=== PATIENT | male | born 2000 | race African-American/Black ===

== ENCOUNTER 2022-12-21 20:42 | Emergency (ER) | payer OTHER ==
[~2022-12-21] VITALS: Ht 175.3 cm; Wt 63.4 kg
[2022-12-21 21:14] LABS: VENOUS BASE EXCESS -0.5 (-2.0-2.0); VENOUS HCO3 26.7 MEQ/L (23.0-27.0); VENOUS PARTIAL PRESSURE O2 38.1 mmHg (30.0-50.0); VENOUS STANDARD HCO3 23.3 MEQ/L; VENOUS TOTAL CO2 28.3 MEQ/L (24.0-28.0)
[2022-12-21 21:21] LABS: BASO % 0.3 % (0.0-1.0); EOS % 0.6 % (0.0-3.0); HEMATOCRIT 44.7 % (42.0-52.0); HEMOGLOBIN 15.6 g/dl (13.5-17.5); LYMPH % 30.9 % (24.0-44.0); MEAN CORPUSCULAR HEMOGLOBIN 27.3 pg (27.0-33.0); MEAN CORPUSCULAR HGB CONC 34.9 g/dl (32.0-36.5); MEAN CORPUSCULAR VOLUME 78.1 fl (80.0-96.0); MONO # 0.4 10^3/uL (0.0-0.8); MONO % 6.3 % (2.0-8.0); NEUTROPHILS % 61.7 % (36.0-66.0); PLATELET COUNT, AUTOMATED 289 10^3/uL (150-450); RED BLOOD COUNT 5.72 10^6/uL (4.30-6.10); WHITE BLOOD COUNT 6.5 10^3/uL (4.0-10.0)
[2022-12-21] MEDS ORDERED: NS 1,000 ML IV ONE (21:30)
[2022-12-21 21:37] LABS: HEMOGLOBIN A1c 8.9 % (4.0-6.0)
[2022-12-21 21:47] LABS: BILIRUBIN,DIRECT 0.4 MG/DL (<0.4)
[2022-12-21 21:56] LABS: LIPASE 27 U/L (12-53)
[2022-12-21 21:56] LABS: RSV AMPLIFICATION NEGATIVE (NEGATIVE)
[2022-12-21 22:15] LABS: OSMOLALITY SERUM 312 MOSM/KG (275-295)
[2022-12-21 22:18] LABS: ALBUMIN 5.1 G/DL (3.2-5.2); ALKALINE PHOSPHATASE 177 U/L (46-116); ALT/SGPT 23 U/L (7.0-40); AST/SGOT 21 U/L (<34); BILIRUBIN,TOTAL 1.1 MG/DL (0.3-1.2); BLOOD UREA NITROGEN 16 MG/DL (9-23); CALCIUM LEVEL 10.4 MG/DL (8.5-10.1); CARBON DIOXIDE LEVEL 26 MMOL/L (20-31); CHLORIDE LEVEL 90 MMOL/L (98-107); CREATININE FOR GFR 1.08 MG/DL (0.70-1.30); GLUCOSE, FASTING 722 MG/DL (60-100); POTASSIUM SERUM 4.6 MMOL/L (3.5-5.1); SODIUM LEVEL 127 MMOL/L (136-145); TOTAL PROTEIN 8.1 G/DL (5.7-8.2)
[2022-12-21] MEDS ORDERED: HumuLIN R (REGULAR) INSULIN (NovoLIN R) **100U/ML** PER UNIT IV ONE (22:25)
[2022-12-21 23:00] VITALS: BP 141/65
[2022-12-21] MEDS ORDERED: metFORMIN (GLUCOPHAGE) 500MG TAB PO ONE (23:30)
[2022-12-21] MEDS ORDERED: METF-839 PO (23:37)
[2022-12-22] MEDS ORDERED: METF-839 PO (14:53)
== END 2022-12-21 23:52 | disposition home or self-care (01) ==
LOC: M ED 20:42
DX: E11.65 Type 2 diabetes mellitus with hyperglycemia (principal)
CPT/HCPCS: 36415; 80047; 80048; 80076; 81002; 82010; 82803; 83036; 83690; 83930; 85025; 87631; 93005; 93041; 94760; 99285; J1815

== ENCOUNTER 2023-05-16 18:07 | Inpatient (IN) | payer OTHER ==
[~2023-05-16] VITALS: Ht 175.3 cm; Wt 60.7 kg
[~2023-05-16 18:07] MED LIST: METF-839 PO
[2023-05-16 19:50] LABS: BASO % 0.5 % (0.0-1.0); EOS # 0.2 10^3/uL (0.0-0.5); EOS % 2.2 % (0.0-3.0); HEMOGLOBIN 15.1 g/dl (13.5-17.5); LYMPH # 1.8 10^3/uL (1.5-5.0); LYMPH % 25.1 % (24.0-44.0); MEAN CORPUSCULAR HEMOGLOBIN 27.6 pg (27.0-33.0); MEAN CORPUSCULAR HGB CONC 35.1 g/dl (32.0-36.5); MEAN CORPUSCULAR VOLUME 78.5 fl (80.0-96.0); MONO # 0.4 10^3/uL (0.0-0.8); MONO % 5.1 % (2.0-8.0); NEUTROPHILS # 4.9 10^3/uL (1.5-8.5); PLATELET COUNT, AUTOMATED 279 10^3/uL (150-450); RED BLOOD COUNT 5.48 10^6/uL (4.30-6.10); WHITE BLOOD COUNT 7.3 10^3/uL (4.0-10.0)
[2023-05-16 19:56] LABS: VENOUS BASE EXCESS -1.8 (-2.0-2.0); VENOUS O2 SATURATION 60.7 % (60.0-80.0); VENOUS PARTIAL PRESSURE CO2 49.8 mmHg (38.0-50.0); VENOUS PARTIAL PRESSURE O2 32.4 mmHg (30.0-50.0); VENOUS PH 7.319 UNITS (7.330-7.430); VENOUS TOTAL CO2 26.6 MMOL/L (24.0-28.0)
[2023-05-16 20:13] LABS: LIPASE 30 U/L (12-53)
[2023-05-16 20:18] LABS: ALKALINE PHOSPHATASE 152 U/L (46-116); ALT/SGPT 160 U/L (7.0-40); AST/SGOT 51 U/L (<34); BILIRUBIN,DIRECT 0.2 MG/DL (<0.4); BILIRUBIN,TOTAL 1.2 MG/DL (0.3-1.2); MAGNESIUM LEVEL 2.3 MG/DL (1.8-2.4); PHOSPHORUS LEVEL 4.2 MG/DL (2.5-4.9); TOTAL PROTEIN 7.3 G/DL (5.7-8.2)
[2023-05-16 20:27] LABS: HEMOGLOBIN A1c 11.6 % (4.0-6.0)
[2023-05-16 20:37] LABS: BLOOD UREA NITROGEN 16 MG/DL (9-23); CALCIUM LEVEL 9.3 MG/DL (8.5-10.1); CARBON DIOXIDE LEVEL 25 MMOL/L (20-31); CHLORIDE LEVEL 95 MMOL/L (98-107); CREATININE FOR GFR 0.94 MG/DL (0.70-1.30); GLUCOSE, FASTING 577 MG/DL (60-100); POTASSIUM SERUM 4.6 MMOL/L (3.5-5.1); SODIUM LEVEL 132 MMOL/L (136-145)
[2023-05-16 20:38] LABS: OSMOLALITY SERUM 312 MOSM/KG (275-295)
[2023-05-16 20:54] LABS: RSV AMPLIFICATION NEGATIVE (NEGATIVE)
[2023-05-16] MEDS ORDERED: LEVEMIR (INSULIN DETEMIR) 1 UNITS/0.01ML SC SCH (21:00)
[2023-05-16] MEDS ORDERED: HumuLIN R (REGULAR) INSULIN (NovoLIN R) **100U/ML** PER UNIT IV ONE (21:00)
[2023-05-16] MEDS ORDERED: NS 500 ML IV ONE (21:00)
[2023-05-16] MEDS ORDERED: METF500T13 PO (23:02)
[2023-05-16] MEDS ORDERED: HOME MED LIST COMPLETE! XX SCH (23:05)
[2023-05-16] MEDS ORDERED: DEXTROSE 50% 50ML SYRINGE IV PRN (23:25)
[2023-05-16] MEDS ORDERED: GLUCAGON INJ 1MG VIAL SC PRN (23:25)
[2023-05-16] MEDS ORDERED: ACETAMINOPHEN TAB 650MG DOSE (2X325MG) PO PRN (23:25)
[2023-05-16] MEDS ORDERED: GLUCOSE 4GM CHEW TABLET PO PRN (23:25)
[2023-05-17] MEDS: NS 1,000 ML IV SCH ×4 (00:42→23:08)
[2023-05-17 07:45] LABS: HEMATOCRIT 36.8 % (42.0-52.0); HEMOGLOBIN 12.8 g/dl (13.5-17.5); MEAN CORPUSCULAR HEMOGLOBIN 27.6 pg (27.0-33.0); MEAN CORPUSCULAR HGB CONC 34.8 g/dl (32.0-36.5); MEAN CORPUSCULAR VOLUME 79.5 fl (80.0-96.0); PLATELET COUNT, AUTOMATED 214 10^3/uL (150-450); RED BLOOD COUNT 4.63 10^6/uL (4.30-6.10); WHITE BLOOD COUNT 5.6 10^3/uL (4.0-10.0)
[2023-05-17] MEDS: INSULIN LISPRO (NovoLOG) PER UNIT SC SCH ×3 (07:56→17:18)
[2023-05-17] MEDS ORDERED: metFORMIN (GLUCOPHAGE) 500MG TAB PO SCH ×2 (08:00)
[2023-05-17 08:10] LABS: ALBUMIN 3.6 G/DL (3.2-5.2); ALKALINE PHOSPHATASE 117 U/L (46-116); ALT/SGPT 126 U/L (7.0-40); AST/SGOT 51 U/L (<34); BILIRUBIN,TOTAL 0.7 MG/DL (0.3-1.2); BLOOD UREA NITROGEN 15 MG/DL (9-23); CALCIUM LEVEL 8.5 MG/DL (8.5-10.1); CARBON DIOXIDE LEVEL 27 MMOL/L (20-31); CHLORIDE LEVEL 99 MMOL/L (98-107); CREATININE FOR GFR 0.97 MG/DL (0.70-1.30); GLUCOSE, FASTING 592 MG/DL (60-100); POTASSIUM SERUM 4.7 MMOL/L (3.5-5.1); SODIUM LEVEL 132 MMOL/L (136-145); TOTAL PROTEIN 5.4 G/DL (5.7-8.2)
[2023-05-17] MEDS ORDERED: LEVEMIR (INSULIN DETEMIR) 1 UNITS/0.01ML SC SCH (09:00)
[2023-05-17] MEDS: ENOXAPARIN 40MG/0.4ML SYRINGE (J1650 PER 10MG) SC SCH (09:00)
[2023-05-17 15:20] VITALS: BP 122/74; TEMP 97.7; O2SAT 100
[2023-05-17 20:51] VITALS: BP 122/74; TEMP 97.5; O2SAT 96
[2023-05-17] MEDS ORDERED: INSULIN LISPRO (NovoLOG) PER UNIT SC SCH (21:00)
[2023-05-18] MEDS ORDERED: INSULIN LISPRO (NovoLOG) PER UNIT SC ONE ×2 (04:00)
[2023-05-18] MEDS ORDERED: INSULIN LISPRO (NovoLOG) PER UNIT SC STA (05:09)
[2023-05-18 06:05] LABS: BASO % 0.5 % (0.0-1.0); EOS # 0.2 10^3/uL (0.0-0.5); EOS % 2.5 % (0.0-3.0); HEMATOCRIT 36.6 % (42.0-52.0); HEMOGLOBIN 12.7 g/dl (13.5-17.5); LYMPH # 2.3 10^3/uL (1.5-5.0); LYMPH % 36.1 % (24.0-44.0); MEAN CORPUSCULAR HEMOGLOBIN 27.5 pg (27.0-33.0); MEAN CORPUSCULAR HGB CONC 34.7 g/dl (32.0-36.5); MEAN CORPUSCULAR VOLUME 79.4 fl (80.0-96.0); MONO # 0.3 10^3/uL (0.0-0.8); MONO % 4.6 % (2.0-8.0); NEUTROPHILS # 3.6 10^3/uL (1.5-8.5); PLATELET COUNT, AUTOMATED 212 10^3/uL (150-450); RED BLOOD COUNT 4.61 10^6/uL (4.30-6.10); WHITE BLOOD COUNT 6.4 10^3/uL (4.0-10.0)
[2023-05-18 06:54] LABS: HEPATITIS B SURFACE ANTIGEN NEGATIVE (NEGATIVE)
[2023-05-18 07:14] VITALS: BP 105/61; TEMP 97.7; O2SAT 100
[2023-05-18 07:14] LABS: HEPATITIS B CORE ANTIBODY IGM NEGATIVE (NEGATIVE); HEPATITIS C VIRUS ABY INDEX 0.08 INDEX (<0.8)
[2023-05-18 07:16] LABS: BLOOD UREA NITROGEN 19 MG/DL (9-23); CALCIUM LEVEL 8.9 MG/DL (8.5-10.1); CARBON DIOXIDE LEVEL 26 MMOL/L (20-31); CHLORIDE LEVEL 100 MMOL/L (98-107); CREATININE FOR GFR 1.19 MG/DL (0.70-1.30); GLUCOSE, FASTING 488 MG/DL (60-100); POTASSIUM SERUM 4.1 MMOL/L (3.5-5.1); SODIUM LEVEL 133 MMOL/L (136-145)
[2023-05-18] MEDS: INSULIN LISPRO (NovoLOG) PER UNIT SC SCH ×3 (07:30→17:12)
[2023-05-18] MEDS ORDERED: LEVEMIR (INSULIN DETEMIR) 1 UNITS/0.01ML SC SCH (09:00)
[2023-05-18 09:14] LABS: ALBUMIN 3.6 G/DL (3.2-5.2); ALKALINE PHOSPHATASE 118 U/L (46-116); ALT/SGPT 128 U/L (7.0-40); AST/SGOT 50 U/L (<34); BILIRUBIN,DIRECT 0.4 MG/DL (<0.4); BILIRUBIN,TOTAL 1.1 MG/DL (0.3-1.2); TOTAL PROTEIN 5.5 G/DL (5.7-8.2)
[2023-05-18] MEDS: ENOXAPARIN 40MG/0.4ML SYRINGE (J1650 PER 10MG) SC SCH (09:40)
[2023-05-18] MEDS: NS 1,000 ML IV SCH (09:43)
[2023-05-18 14:00] VITALS: BP 121/79; TEMP 97.7; O2SAT 99
[2023-05-18] MEDS ORDERED: GLUC1TES2 XX ×2 (17:32→21:46)
[2023-05-18] MEDS ORDERED: PEN1MIS21 SC ×2 (17:32→21:46)
[2023-05-18] MEDS ORDERED: HUMA100I5 SC (17:32)
[2023-05-18] MEDS ORDERED: BLOOKIT21 XX ×2 (17:32→21:46)
[2023-05-18] MEDS ORDERED: ALCOPAD25 TOP ×2 (17:32→21:46)
[2023-05-18] MEDS ORDERED: INSU100I48 SQ ×2 (17:32→21:46)
[2023-05-18] MEDS ORDERED: NOVOINJ3 SC (21:46)
[2023-05-19] MEDS ORDERED: INSULIN LISPRO (NovoLOG) PER UNIT SC SCH (07:30)
== END 2023-05-18 20:00 | disposition home or self-care (01) | DRG 638 ==
LOC: M ED 18:07 → M MS5PR 23:23 → M ED INP 23:23 → ENRESERV 05-17 13:32 → M MS5PR 05-17 15:20
PROVIDERS: ADMIT Internal Medicine; ATTEND Internal Medicine Nephrology
DX: E11.00 Type 2 diabetes mellitus with hyperosmolarity without nonketotic hyperglycemic-hyperosmolar coma (NKHHC) (principal); E46 Unspecified protein-calorie malnutrition; Z68.1 Body mass index [BMI] 19.9 or less, adult; Z79.84 Long term (current) use of oral hypoglycemic drugs; R74.01 Elevation of levels of liver transaminase levels; E87.6 Hypokalemia; E11.65 Type 2 diabetes mellitus with hyperglycemia; R63.4 Abnormal weight loss

== ENCOUNTER 2023-06-04 21:58 | Emergency (ER) | payer OTHER ==
[~2023-06-04] VITALS: Ht 175.3 cm; Wt 60.5 kg
[~2023-06-04 21:58] MED LIST changes: +ALCOPAD25 TOP; +BLOOKIT21 XX; +GLUC1TES2 XX; +HUMA100I5 SC; +INSU100I48 SQ; +METF500T13 PO; +NOVOINJ3 SC; +PEN1MIS21 SC
[2023-06-05] MEDS ORDERED: METOCLOPRAMIDE INJ 10MG/2ML VIAL IV ONE (00:55)
[2023-06-05] MEDS ORDERED: KETOROLAC 30 MG/ML 1ML VIAL IV ONE (00:55)
[2023-06-05] MEDS ORDERED: NS 1,000 ML IV ONE (00:55)
[2023-06-05 01:35] LABS: BASO % 0.8 % (0.0-1.0); EOS # 0.1 10^3/uL (0.0-0.5); EOS % 1.4 % (0.0-3.0); HEMATOCRIT 41.8 % (42.0-52.0); HEMOGLOBIN 14.5 g/dl (13.5-17.5); LYMPH # 1.8 10^3/uL (1.5-5.0); LYMPH % 36.3 % (24.0-44.0); MEAN CORPUSCULAR HEMOGLOBIN 27.7 pg (27.0-33.0); MEAN CORPUSCULAR HGB CONC 34.7 g/dl (32.0-36.5); MEAN CORPUSCULAR VOLUME 79.9 fl (80.0-96.0); MONO # 0.4 10^3/uL (0.0-0.8); MONO % 7.2 % (2.0-8.0); NEUTROPHILS # 2.7 10^3/uL (1.5-8.5); NEUTROPHILS % 54.1 % (36.0-66.0); PLATELET COUNT, AUTOMATED 220 10^3/uL (150-450); RED BLOOD COUNT 5.23 10^6/uL (4.30-6.10)
[2023-06-05 01:52] LABS: BLOOD UREA NITROGEN 16 MG/DL (9-23); CALCIUM LEVEL 9.6 MG/DL (8.5-10.1); CARBON DIOXIDE LEVEL 29 MMOL/L (20-31); CHLORIDE LEVEL 101 MMOL/L (98-107); CREATININE FOR GFR 0.91 MG/DL (0.70-1.30); GLUCOSE, FASTING 319 MG/DL (60-100); MAGNESIUM LEVEL 2.2 MG/DL (1.8-2.4); POTASSIUM SERUM 4.2 MMOL/L (3.5-5.1); SODIUM LEVEL 137 MMOL/L (136-145)
[2023-06-05] MEDS ORDERED: HumuLIN R (REGULAR) INSULIN (NovoLIN R) **100U/ML** PER UNIT IV ONE (02:20)
[2023-06-05 03:07] VITALS: BP 123/64; TEMP 96.4; O2SAT 100
== END 2023-06-05 03:24 | disposition home or self-care (01) ==
LOC: M ED 21:58
DX: E11.65 Type 2 diabetes mellitus with hyperglycemia (principal); G44.009 Cluster headache syndrome, unspecified, not intractable; Z79.899 Other long term (current) drug therapy; Z79.4 Long term (current) use of insulin
CPT/HCPCS: 80048; 83735; 85025; 96374; 96375; 99284; J1815; J1885; J2765

== ENCOUNTER 2023-10-04 13:27 | Emergency (ER) | payer OTHER ==
[~2023-10-04] VITALS: Ht 175.3 cm; Wt 72.8 kg
[~2023-10-04 13:27] MED LIST changes: +PEN-308 SC; -PEN1MIS21 SC
[2023-10-04 13:28] VITALS: BP 135/81; TEMP 98.8; O2SAT 99
== END 2023-10-04 14:45 | disposition left against medical advice (07) ==
LOC: M ED 13:27
DX: Z53.21 Procedure and treatment not carried out due to patient leaving prior to being seen by health care provider (principal)